=== PATIENT | male | born 1980 | race Caucasian/White ===

== ENCOUNTER 2020-12-27 04:33 | Emergency (ER) | payer SELFPAY ==
[~2020-12-27] VITALS: Ht 177.8 cm; Wt 72.7 kg
[2020-12-27 04:43] VITALS: BP 173/117
[2020-12-27] MEDS ORDERED: PENICILLIN G BENZATHINE 2,400,000 UNIT/4 ML SYRINGE IM SCH (05:20)
[2020-12-27] MEDS ORDERED: IMIQ1CRE TP (05:20)
== END 2020-12-27 05:38 | disposition home or self-care (01) ==
LOC: ER 04:34
DX: B07.8 Other viral warts (principal); Z79.899 Other long term (current) drug therapy
CPT/HCPCS: 96372; 99283; J0561